=== PATIENT | male | born 1990 | race Caucasian/White ===

== ENCOUNTER 2017-06-07 18:22 | Emergency (ER) | payer SELFPAY ==
[~2017-06-07] VITALS: Ht 182.9 cm; Wt 72.1 kg
[2017-06-07 18:34] VITALS: Ht 182.9 cm; Wt 72.1 kg
[2017-06-07 20:46] VITALS: BP 117/61
== END 2017-06-07 20:46 | disposition home or self-care (01) ==
LOC: ED 18:22
DX: R07.89 Other chest pain (principal)
CPT/HCPCS: J1885; Q0092